=== PATIENT | male | born 1945 | race Caucasian/White ===

== ENCOUNTER 2023-03-09 09:49 | Day surgery (SDC) | payer OTHER ==
[2023-02-17 15:58] VITALS: BMI 18.3
[~2023-03-09 09:49] MED LIST: CYCLOPENTOLATE HCL 1% OPHTH SOLN 2 ML BOTTLE OD SCH; KETOROLAC TROMETHAMINE 0.5% EYE DROP 1 DROP DROPS OD SCH; OFLOXACIN 0.3% OPHTHALMIC SOLUTION 5 ML BOTTLE OD SCH; PHENYLEPHRINE 2.5% OPHTH SOLN 15 ML BOTTLE OD SCH; TROPICAMIDE 1% OPHTH SOLN 15 ML BOTTLE OD SCH
[2023-03-09] MEDS ORDERED: TROPICAMIDE 1% OPHTH SOLN 15 ML BOTTLE ONE (10:27)
[2023-03-09] MEDS ORDERED: CYCLOPENTOLATE HCL 1% OPHTH SOLN 2 ML BOTTLE ONE (10:27)
[2023-03-09] MEDS ORDERED: KETOROLAC TROMETHAMINE 0.5% EYE DROP 1 DROP DROPS ONE (10:27)
[2023-03-09] MEDS ORDERED: PHENYLEPHRINE 2.5% OPTHALMIC DROP 2ML BOTTLE ONE (10:27)
[2023-03-09] MEDS ORDERED: OFLOXACIN 0.3% OPHTHALMIC SOLUTION 5 ML BOTTLE ONE (10:27)
[2023-03-09] MEDS ORDERED: EPI-SHUGARCAINE (EPINEPHRINE 0.025% & LIDOCAINE-PF 0.75%) 4ML ONE (11:40)
[2023-03-09] MEDS ORDERED: BETAXOLOL HCL 0.25% OPHTHALMIC 10 ML DROPSBTL ONE (11:40)
[2023-03-09] MEDS ORDERED: BACITRACIN/POLYMYXIN OPH OINT 3.5 GM TUBE ONE (11:40)
[2023-03-09] MEDS ORDERED: TETRACAINE 0.5% OPHTH SOLN 2 ML BOTTLE ONE (11:41)
[2023-03-09] MEDS ORDERED: NEO/POLYMYX B SULF/DEXAMETH OPHTHALMIC 5ML BOTTLE ONE (11:41)
[2023-03-09] MEDS ORDERED: POVIDONE-IODINE 5% OPHTHALMIC PREP 30 ML SOLUTION ONE (11:41)
[2023-03-09] MEDS ORDERED: MIDAZOLAM HCL 2 MG/2 ML SINGLE DOSE VIAL ONE (11:54)
[2023-03-09] MEDS ORDERED: ACETAMINOPHEN 325 MG TABLET (FP) PO PRN (12:30)
[2023-03-09 16:09] VITALS: RESP 17; TEMP 97.8
[2023-03-09 16:15] VITALS: BP 128/64; PULSE 68
== END 2023-03-09 13:23 | disposition home or self-care (01) ==
LOC: FASU 09:49
PROVIDERS: ATTEND Ophthalmology
PROC: 08RJ3JZ Replacement of Right Lens with Synthetic Substitute, Percutaneous Approach (ICD-10-PCS; principal; 2023-03-09 12:05)
DX: H25.9 Unspecified age-related cataract (principal)
CPT/HCPCS: 66984; V2632; 82962